=== PATIENT | female | born 1950 | race Hispanic/Latino ===

== ENCOUNTER → 2017-08-05 | Day surgery (SDC) | payer MEDICARE ==
[2017-08-04 16:36] LABS: BASOPHILS % 0.2 % (0.0-1.0); EOSINOPHILS % 0.4 % (0.0-6.0); HEMATOCRIT 40.6 % (34.2-44.1); LYMPHOCYTES # (AUTO) 2.2 (1.0-3.2); LYMPHOCYTES % 24.2 % (18.0-39.1); MEAN CORPUSCULAR HEMOGLOBIN 32.7 pg (28-32); MEAN CORPUSCULAR HGB CONC 34.5 g/dL (31-35); MEAN CORPUSCULAR VOLUME 94.9 fL (81-99); MONOCYTES # (AUTO) 0.5 (0.2-0.8); MONOCYTES % 5.5 % (4.4-11.3); NEUTROPHILS # (AUTO) 6.4 (2.1-6.9); NEUTROPHILS % 69.5 % (38.7-80.0); PLATELET COUNT 298 x10e3/uL (140-360); RED BLOOD COUNT 4.28 x10e6/uL (3.6-5.1); RED CELL DISTRIBUTION WIDTH 12.4 % (11.7-14.4)
--- NOTE | 2017-08-04 17:31 | Diagnostic Imaging Report ---
PROCEDURE: Frontal and lateral views of the chest. COMPARISON: None. INDICATIONS: PRE OPERATIVE CHEST X-RAY FOR FINGER SURGERY FINDINGS: Lines/tubes: None. Lungs: The lungs are well inflated and clear. There is no evidence of pneumonia or pulmonary edema. Pleura: There is no pleural effusion or pneumothorax. Mild biapical pleural scarring. Heart and mediastinum: The heart and the mediastinum are normal. Bones: No acute bony abnormality. Right rotator cuff calcific tendinosis. Surgical clips in upper abdomen. IMPRESSION: 1. No acute thoracic abnormality. Salvador Fatima M.D. Dictated by: Salvador Fatima M.D. on 08/04/2017 at 17:34 Electronically approved by: Salvador Fatima M.D. on 08/04/2017 at 17:34
[~2017-08-05] MED LIST: BACITRACIN 50,000 UNIT VIAL ONE; BUPIVACAINE HCL 0.5% INJ 30 ML VIAL INJ ONE; CEFAZOLIN SOD 1 GM VIAL ONE; DEXAMETHASONE SOD PHOS INJ 4 MG/ML VIAL ONE; FENTANYL CITRATE/PF 100MCG/2 ML INJ ONE; LIDOCAINE HCL 2% LOCAL INJ 5 ML SDV VIAL INJ ONE; LISINOPRIL2.5 MG PO; MIDAZOLAM HCL 2 MG/2 ML VIAL ONE; MUPIROCIN 2% OINT 22 GM TUBE ONE; ONDANSETRON HCL INJ 2 MG/ML VIAL ONE; PROPOFOL IV EMULSION 10 MG/ML 20 ML VIAL ONE; SEVOFLURANE INHAL SOLN 250 ML PEN BTL ONE; TYLENOL325 MG PO
--- OUTSIDE RECORDS SUMMARY | 2017-08-05 07:11 | XMS REPORT ---
Author [facility] Address Unknown Phone Unavailable Care Team Providers Care Multimedia Manager Name Role Phone MARCIE AGUILERA Unavailable Unavailable Problems This patient has no known problems. Allergies, Adverse Reactions, Alerts This patient has no known allergies or adverse reactions. Medications This patient has no known medications. Results Test Description Test Time Test Comments Text Results Atomic Results Result Comments CHEST 2 VIEWS [place] [address] Patient Name: BRIAN TAPIA MR #: [id number] : 1950 Age/Sex: 66/F Req #: [id number] Adm Physician: Ordered by: MICHOACANO MORENO MD Report #: [id number] Location: OR Room/Bed: Procedure: 0530- 0059 DX/CHEST 2 VIEWS Exam Date: 08/04/17 Exam Time : 1609 REPORT STATUS: Signed PROCEDURE: Frontal and lateral views of the chest. COMPARISON: None. INDICATIONS: PRE OPERATIVE CHEST X- RAY FOR FINGER SURGERY FINDINGS: Lines/tubes: None. Lungs: The lungs are well inflated and clear. There is no evidence of pneumonia or pulmonary edema. Pleura: There is no pleural effusion or pneumothorax. Mild biapical pleural scarring. Heart and mediastinum: The heart and the mediastinum are normal. Bones: No acute bony abnormality. Right rotator cuff calcific tendinosis. Surgical clips in upper abdomen. IMPRESSION: 1. No acute thoracic abnormality. Salvador Ceja M.D. Dictated by: Salvador Ceja M.D. on 2017 at 17:34 Electronically approved by: Salvador Ceja M.D. on 08/04/2017 at 17:34 Dictated By: SHAQUILLE CEJA MD, MD 173 Transcribed By : VALERIE on 08/04/171733 COPY TO: MICHOACANO MORENO MD
--- NOTE | 2017-08-05 14:58 | Operative Report ---
DATE OF PROCEDURE: August 05, 2017 PREOPERATIVE DIAGNOSIS: Dislocation of right little finger, proximal interphalangeal joint. POSTOPERATIVE DIAGNOSES 1. Dislocation of right little finger, proximal interphalangeal joint. 2. Avulsion of radial collateral ligament. PROCEDURES 1. Open reduction of right little finger, proximal interphalangeal joint. 2. Repair of radial collateral ligament. ANESTHESIA: General. HISTORY: The patient is a 66-year-old right-hand dominant female who at the end of June slipped and fell in her backyard. She sustained a dislocation of the little finger. She was seen approximately a week later by orthopedics, who reduced the finger under digital block. When the splint was removed a week or 2 later, the finger immediately assumed the dislocated posture, and the patient was then referred to her PCP who then referred the patient to me. I saw the patient yesterday, and it was obvious that she had a ruptured collateral ligament, which was accounting for the instability of the PIP joint. The risks, benefits and alternatives were discussed with the patient, and she is prepared to undergo the procedures outlined. PROCEDURE: Patient was marked preoperatively in the holding area. She was brought to the operating theater, and after the induction of adequate general anesthesia, she was prepped and draped in a supine position. A time out was performed. A volar Michele zigzag incision was marked out over the volar surface of the right little finger. The right upper extremity was exsanguinated and tourniquet inflated to a pressure of 250 mmHg. Incision was made through the skin and subcutaneous tissues. All venous tributaries were controlled with the bipolar cautery. The radial neurovascular bundle was identified and retracted. The skin flap was then elevated off the flexor tendon sheath ulnarward. It was secured using a 4-0 silk suture as a tie back. At this point, the A3 rell over the PIP joint was incised, and the FDP tendon is retracted away from the FDS tendon. The FDS tendon was then incised along its radial aspect, and it too was retracted away from the volar plate. A volar plate appears to be intact. There was old hematoma noted on the radial side of the PIP joint. The joint capsule was then incised and reflected back, and is obvious that the radial collateral ligament has been completely avulsed from the proximal phalanx. The joint shotguns easily and inspection of the articular surfaces revealed no significant damage. The joint was irrigated fully. The periosteum overlying the metaphysis flare of the proximal phalanx is curetted down to good bone. Then a small gouge is made into the cortex to allow placement of the radial collateral ligament proximal segment. At this point under direct fluoroscopic guidance, 2 Anatoliy needles were driven from radial to ulnar across the proximal phalanx at the level of the reinsertion site. At this point, a 2-0 Prolene is sutured to the end of the radial collateral ligament, and then a needle was cut off. The free ends were placed into the Anatoliy needles. The Anatoliy needles were then withdrawn through the proximal phalanx. At this point under direct fluoroscopic control, the dislocation is reduced, and the PIP joint was placed in approximately 40 degrees of flexion. A 0.045 K-wire was driven across the PIP joint to maintain it in this posture. At this point, the Anatoliy needles were placed through Xeroform gauze and felt pad. Then the Prolene was tied thus coapting the proximal end of the radial collateral ligament to the denuded surface of the proximal phalanx. Good apposition of the ligament to bone was noted. At this point, the wound was irrigated with bacteriostatic saline. The joint capsule was then closed with 4-0 Vicryl sutures in an interrupted fashion. The skin was approximated with 5-0 nylon in an interrupted horizontal mattress fashion. A Marcaine field block was performed at the base of the finger. The tourniquet was deflated. All the fingers pinked up nicely. The wound was noted to be hemostatic. A sterile bulking conforming bandage was applied. A foam aluminum splint was placed around the ring and little fingers, and held in place with loosely wrapped Tony wrap and then 1-inch Elastoplast tape. The tolerated the procedure well, and was brought to the recovery room in satisfactory condition, and discharged with a postoperative instruction sheet, as well as a followup appointment. Job#: [id number] JEANETTE
== END | disposition home or self-care (01) ==
LOC: OR 07:08
PROVIDERS: ATTEND Plastic Surgery
DX: S63.286A Dislocation of proximal interphalangeal joint of right little finger, initial encounter (principal); S63.416A Traumatic rupture of collateral ligament of right little finger at metacarpophalangeal and interphalangeal joint, initial encounter; I10 Essential (primary) hypertension; W01.0XXA Fall on same level from slipping, tripping and stumbling without subsequent striking against object, initial encounter; Y92.096 Garden or yard of other non-institutional residence as the place of occurrence of the external cause; Z88.6 Allergy status to analgesic agent; Z88.8 Allergy status to other drugs, medicaments and biological substances; Z01.810 Encounter for preprocedural cardiovascular examination; Z01.812 Encounter for preprocedural laboratory examination; Z01.818 Encounter for other preprocedural examination
CPT/HCPCS: 26540; 26785; 36415; 71046; 85025; 93005; J0690; J1100; J2001; J2250; J2405